=== PATIENT | male | born 1990 | race Caucasian/White ===

== ENCOUNTER 2018-03-20 16:45 | Emergency (ER) | payer SELFPAY ==
[2018-03-20 16:59] VITALS: TEMP 98.4
[2018-03-20] MEDS: SODIUM CHLORIDE 0.9% 1000ML 1,000 ML IVS ONE (17:30)
[2018-03-20] MEDS: TETANUS,DIPHTHERIA,PERTUSSIS 1 EA SYG IM ONE (17:31)
[2018-03-20] MEDS: SULFA/TRIMETH 800/160 (DS) TAB 1 EA TAB PO ONE (18:05)
[2018-03-20 18:37] VITALS: O2SAT 98
--- NOTE | 2018-03-20 18:53 | ED.PDOC ---
History of Present Illness - General Chief Complaint: Behavioral / Psych Stated Complaint: disorientation,hx mental illness Time Seen by Provider: 03/20/18 16:58 Source: patient Exam Limitations: no limitations - History of Present Illness Initial Comments: The patient is a 27-year-old male presenting to emergency room with police. The patient currently called 911 because he had a scratch on his abdomen from a couple of days ago that was starting to get a small infection area upon arrival by the police the patient was found to be mildly intoxicated. He does have a history of PTSD and generalized anxiety or disorder according to him. He has been out walking around in the heat as well. He does take clonazepam. He knows where he is and what is going on. He is pleasant and cooperative. He is not belligerent. He is well dressed and in no acute distress. Vital signs stable. No evidence of fever. He actually does know where he is and what date it is.mentation is slowed but thought processes are appropriate. No hallucinations. No suicidal or homicidal ideation. Timing/Duration: unsure Severity: mild Improving Factors: nothing Worsening Factors: nothing Associated Symptoms: denies symptoms Allergies/Adverse Reactions: Allergies Haloperidol [From Haldol] Allergy (Verified 03/20/18 17:00) Home Medications: Ambulatory Orders Sulfa/Trimeth 800/160 (Ds) Tab [Bactrim DS Tab] 1 ea PO BID #6 tab 03/20/18 Review of Systems - Review of Systems Constitutional: States: no symptoms reported EENTM: States: no symptoms reported Respiratory: States: no symptoms reported Cardiology: States: no symptoms reported Gastrointestinal/Abdominal: States: no symptoms reported Genitourinary: States: no symptoms reported Musculoskeletal: States: no symptoms reported Skin: States: no symptoms reported Neurological: States: see HPI Endocrine: States: no symptoms reported All other Systems: No Change from Baseline Past Medical History (General) - Patient Medical History Hx Stroke: No Hx Congestive Heart Failure: No Hx Diabetes: No - Vaccination History Hx Influenza Vaccination: Yes - Social History Hx Tobacco Use: Yes Family Medical History - Family History Father Family History: Unknown Living Status: Unknown Physical Exam - Physical Exam General Appearance: Alert, Comfortable, No apparent distress Eye Exam: bilateral normal Ears, Nose, Throat: hearing grossly normal, normal ENT inspection, normal pharynx Neck: full range of motion, supple Respiratory: lungs clear, normal breath sounds, no respiratory distress, no accessory muscle use Cardiovascular/Chest: normal peripheral pulses, regular rate, rhythm, no edema Peripheral Pulses: radial,right: 2+, radial,left: 2+, dorsalis pedis,right: 2+, dorsalis pedis,left: 2+ Gastrointestinal/Abdominal: non tender, soft Rectal Exam: deferred Back Exam: normal inspection, no CVA tenderness, no vertebral tenderness Extremity: non-tender, normal inspection, no pedal edema, normal capillary refill 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 He does have some mild heat exhaustion and does need to try stay out of the heat for a few days. He needs to keep himself well-hydrated. He did receive a liter of IV fluids here. No evidence of any liver or kidney dysfunction. The patient also does appear to be mildly intoxicated which is also likely related to his dehydration in combination with his medication of clonazepam that he takes for anxiety and also possibly contributed to by marijuana which he did test positive for on his urinalysis. It is recommended that he avoid this in the future to avoid complicating treatment for his generalized anxiety disorder. there is no evidence of any homicidal or suicidal ideation and no evidence of any hallucinations or significant delusions. The patient was discussed with Alida from [facility]. ER warnings were given for any significant worsening. He does need to avoid taking additional doses of his clonazepam for the next day or 2. He can contact [facility] here in town in the next few days for continuation of care for his generalized anxiety disorder as he is in from out of town. He is still currently mildly intoxicated and does need to refrain from any high-risk activities such as swimming climbing driving or operating any heavy machinery. The patient is going to be written for Bactrim twice daily for the next 2 days for a very mild cellulitis surrounding a scratch on his abdomen. He did receive a tetanus shot here today. - Results/Orders Results/Orders: Vital Signs - 24 hr 03/20/18 03/20/18 03/20/18 16:51 17:33 18:36 Temperature 98.4 F Pulse Rate [ 83 76 82 Right Brachial] Respiratory 20 16 Rate Blood Pressure 157/82 130/69 132/64 [Left Arm] O2 Sat by Pulse 99 98 Oximetry Laboratory Tests 03/20/18 03/20/18 03/20/18 17:24 17:24 17:24 WBC 5.3 RBC 5.14 Hgb 15.4 Hct 45.7 MCV 88.9 MCH 29.9 MCHC 33.6 RDW 13.0 Plt Count 227 MPV 8.3 Absolute Neuts (auto) 3.10 Absolute Lymphs (auto) 1.70 Absolute Monos (auto) 0.50 Absolute Eos (auto) 0.00 Absolute Basos (auto) 0.00 Neutrophils % 58.5 Lymphocytes % 31.3 Monocytes % 9.0 Eosinophils % 0.6 L Basophils % 0.6 Sodium 137 Potassium 3.6 Chloride 106 Carbon Dioxide 26 Anion Gap 8.6 L BUN 15 Creatinine 1.00 BUN/Creatinine Ratio 15.0 Random Glucose 86 Serum Osmolality 274.0 L Calcium 9.1 Total Bilirubin 0.7 AST 26 ALT 22 Alkaline Phosphatase 81 Creatine Kinase 238 H* CK-MB (CK-2) 2.4 CK-MB (CK-2) % 1.01 Troponin I 0.00 L Serum Total Protein 6.7 Albumin 4.3 Globulin 2.4 Albumin/Globulin Ratio 1.8 Urine Color Urine Appearance Urine pH Ur Specific [place] Urine Protein Urine Glucose (UA) Urine Ketones Urine Blood Urine Nitrite Urine Bilirubin Urine Urobilinogen Ur Leukocyte Esterase Urine RBC Urine WBC Ur Epithelial Cells Urine Bacteria Urine Opiates Screen Negative Urine Barbiturates Negative Ur Phencyclidine Scrn Negative U Amphetamin/Meth Scrn Negative U Benzodiazepines Scrn Positive U Cocaine Metab Screen Negative U Cannabinoids Screen Positive 03/20/18 17:24 WBC RBC Hgb Hct MCV MCH MCHC RDW Plt Count MPV Absolute Neuts (auto) Absolute Lymphs (auto) Absolute Monos (auto) Absolute Eos (auto) Absolute Basos (auto) Neutrophils % Lymphocytes % Monocytes % Eosinophils % Basophils % Sodium Potassium Chloride Carbon Dioxide Anion Gap BUN Creatinine BUN/Creatinine Ratio Random Glucose Serum Osmolality Calcium Total Bilirubin AST ALT Alkaline Phosphatase Creatine Kinase CK-MB (CK-2) CK-MB (CK-2) % Troponin I Serum Total Protein Albumin Globulin Albumin/Globulin Ratio Urine Color Yellow Urine Appearance Clear Urine pH 5.5 Ur Specific [place] 1.025 Urine Protein Negative Urine Glucose (UA) Negative Urine Ketones Trace Urine Blood Negative Urine Nitrite Negative Urine Bilirubin Small H Urine Urobilinogen 0.2 Ur Leukocyte Esterase Negative Urine RBC 0 Urine WBC 0 Ur Epithelial Cells 0 Urine Bacteria 0 Urine Opiates Screen Urine Barbiturates Ur Phencyclidine Scrn U Amphetamin/Meth Scrn U Benzodiazepines Scrn U Cocaine Metab Screen U Cannabinoids Screen Departure - Departure Clinical Impression: Benzodiazepine intoxication, Cellulitis, abdominal wall Heat exposure Qualifiers: Encounter type: initial encounter Qualified Code(s): T67.9XXA - Effect of heat and light, unspecified, initial encounter Disposition: Discharge to Home or Self Care Condition: Fair Departure Forms: ED Discharge - Pt. Copy, Patient Portal Self Enrollment Instructions: Heat Exhaustion and Heat Stroke (DC), Cellulitis (Skin Infection) , Adult (DC), Marijuana Use and Addiction (DC) Diet: regular diet Activity: increase activity as tolerated Prescriptions: Sulfa/Trimeth 800/160 (Ds) Tab [Bactrim DS Tab] 1 ea PO BID #6 tab Home Medications: Ambulatory Orders Sulfa/Trimeth 800/160 (Ds) Tab [Bactrim DS Tab] 1 ea PO BID #6 tab 03/20/18 Additional Instructions: the patient is a 27-year-old male presenting to the emergency room secondary to mild altered mental status that is probably multifactorial for this patient. He does have some mild heat exhaustion and does need to try stay out of the heat for a few days. He needs to keep himself well-hydrated. He did receive a liter of IV fluids here. No evidence of any liver or kidney dysfunction. The patient also does appear to be mildly intoxicated which is also likely related to his dehydration in combination with his medication of clonazepam that he takes for anxiety and also possibly contributed to by marijuana which he did test positive for on his urinalysis. It is recommended that he marijuana in the future to avoid complicating treatment for his generalized anxiety disorder. there is no evidence of any homicidal or suicidal ideation and no evidence of any hallucinations or significant delusions. The patient was discussed with Alida from [facility]. ER warnings were given for any significant worsening. He does need to avoid taking additional doses of his clonazepam for the next day or 2. He can contact [facility] here in town in the next few days for continuation of care for his generalized anxiety disorder as he is in from out of town. He is still currently mildly intoxicated and does need to refrain from any high-risk activities such as swimming climbing driving or operating any heavy machinery. The patient is going to be written for Bactrim twice daily for the next 2 days for a very mild cellulitis surrounding a scratch on his abdomen. He did receive a tetanus shot here today.
[2018-03-20 19:18] VITALS: BP 149/96
== END 2018-03-20 19:17 | disposition home or self-care (01) ==
LOC: ER 16:45
DX: L03.311 Cellulitis of abdominal wall (principal); T42.4X5A Adverse effect of benzodiazepines, initial encounter; T67.5XXA Heat exhaustion, unspecified, initial encounter; F43.10 Post-traumatic stress disorder, unspecified; R41.82 Altered mental status, unspecified; F41.1 Generalized anxiety disorder; E86.0 Dehydration; Z23 Encounter for immunization; Z79.899 Other long term (current) drug therapy; Z87.891 Personal history of nicotine dependence; X30.XXXA Exposure to excessive natural heat, initial encounter
CPT/HCPCS: 36415; 80053; 80307; 81001; 82550; 82553; 84484; 85025; 90471; 90715; J7030